=== PATIENT | male | born 1980 | race Caucasian/White ===

== ENCOUNTER 2018-08-02 12:41 | Emergency (ER) | payer MEDICAID, OTHER ==
[~2018-08-02] VITALS: Ht 177.8 cm; Wt 97.5 kg
[2018-08-02 13:24] LABS: Urine Bacteria MOD /hpf (None Seen); Urine Blood 2+ /uL (Negative); Urine Specific Gravity 1.007 (1.001-1.035); Urine WBC 493 /hpf (0 - 3)
[2018-08-02 13:28] LABS: Basophils # (auto) 0.1 uL; Basophils % (auto) 0.5 % (0.0-2.0); Eosinophils # (auto) 0 uL; Hematocrit 44.3 % (41.0-53.0); Hemoglobin 15.4 g/dL (13.5-17.5); Lymphocytes % (auto) 6.1 % (10.0-50.0); Mean Corpuscular Hemoglobin 30.7 pg (28.0-32.0); Mean Corpuscular Hgb Conc. 34.6 g/dL (32.0-36.0); Mean Corpuscular Volume 88.7 fL (80.0-100.0); Monocytes # (auto) 1.4 uL; Monocytes % (auto) 8.5 % (0.0-12.0); Neutrophils # (auto) 14.1 uL; Neutrophils % (auto) 84.9 % (37.0-80.0); Platelet Count (auto) 298 10^3/uL (140-450); Red Cell Distribution Width 12.5 % (11.8-14.3); White Blood Cell 16.6 10^3/uL (4.4-10.8)
[2018-08-02 13:43] LABS: Calcium 9.6 mg/dL (8.5-10.1); Potassium 3.5 mmol/L (3.5-5.1)
[2018-08-02 13:47] LABS: BUN/Creatinine Ratio 12.3; Bilirubin, Total 0.7 mg/dL (0.2-1.0); Total Protein 7.8 g/dL (6.4-8.2)
[2018-08-02] MEDS ORDERED: SODIUM CHLORIDE 0.9% 1,000 ML IVB ONE (17:02)
[2018-08-02] MEDS ORDERED: cefTRIAXone 1GM/50ML D5W 50 ML IV ONE (17:15)
[2018-08-02 17:32] VITALS: BP 124/73
[2018-08-02] MEDS ORDERED: cefTRIAXone W LIDOCAINE 1 GM IM IM ONE (18:30)
[2018-08-02] MEDS ORDERED: cefTRIAXone SOD 1,000 MG VL ONE (18:50)
[2018-08-02] MEDS ORDERED: LIDOCAINE 2% (LOCAL ANESTH.) PF 5ml SDV ONE (18:50)
== END 2018-08-02 19:11 | disposition home or self-care (01) ==
LOC: ER 12:41
DX: N10 Acute pyelonephritis (principal); N34.2 Other urethritis
CPT/HCPCS: 36415; 80053; 81001; 85025; 87086; 87088; 87186; 87491; 87591; 96365; 96372; 99283; J0696; J2001